=== PATIENT | female | born 1985 | race Caucasian/White ===

== ENCOUNTER 2021-03-08 18:18 | Emergency (ER) | payer OTHER, SELFPAY ==
[2021-03-08 18:33] VITALS: BP 109/61; PULSE 73; RESP 18; TEMP 36.4; O2SAT 100
--- NOTE | 2021-03-08 18:39 | ED.FEMALEGU ---
HPI - Female Genitourinary General Chief complaint: Urogenital-Female Stated complaint: uti Source: patient and RN notes reviewed Limitations: no limitations History of Present Illness HPI Narrative: The patient, previously mostly healthy non-smoker/occasional drinker, presents with urinary symptoms. Patient states she is she has a 2-day history of definite frequency, urgency and end dysuria. No blood/hematuria, back pain, vomiting/diarrhea, vaginal discharge; symptoms are mild worse with micturition -like prior UTI. LMP was recently; Patient has a prior history of E. coli , resistant only to Bactrim 2018. [Pharmacy was sent a prescription for Bactrim before the microbiology record was reviewed], discussed will provide the patient Cipro Related Data Allergies Allergy/AdvReac Type Severity Reaction Status Date / Time No Known Allergies Allergy Verified 03/08/21 18:21 Review of Systems Review of Systems: General/Constitutional: No weight loss,fever Eyes: N0: Redness,discharge Ears/Nose/Throat: No: Epistaxis,ear discharge Respiratory: Denies: Hemoptysis Gastrointestinal: No Vomiting, Bleeding-rectal Skin: No Lumps, eruption Neurologic: No Focal Weakness,Sz Hematologic: Denies: Petechiae/Purpura Psychiatric: No: Suicida ideationl All Other Systems: Reviewed and Negative PMFSH Social History Social History Gender identity (if verbalized by the patient): Female Comments At time of signature, agree with nursing past medical, surgical, social and family history. There is no relevant family history pertinent to the presenting complaint Exam Narrative: General Appearance: Well appearing, Conjunctiva clear Mouth/Throat: Normal appearing, Normal lips, Supple Respiratory: Airway patent, No respiratory distress Abdomen: Soft, Non-tender, Musculoskeletal: Full ROM Skin: Warm, Dry Neurological: A&O x3, , Normal affect Course Vital Signs Vital signs: Vital Signs Temperature 97.6 F 03/08/21 18:33 Pulse Rate 73 03/08/21 18:33 Respiratory Rate 18 03/08/21 18:33 Blood Pressure 109/61 03/08/21 18:33 Pulse Oximetry 100 03/08/21 18:33 Temperature 97.6 F 03/08/21 18:33 Pulse Rate 73 03/08/21 18:33 Respiratory Rate 18 03/08/21 18:33 Blood Pressure 109/61 03/08/21 18:33 Pulse Oximetry 100 03/08/21 18:33 MDM - Female Genitourinary Lab Data Labs: Urine Glucose Negative Reference Range: Negative Urine Bilirubin Negative Reference Range: Negative Urine Ketone Negative Reference Range: Negative Urine Specific [place] 1.010 Reference Range:1.001-1.035 Urine Blood 2+ Reference Range: Negative * * Urine pH 5.5 Reference Range: 5.0-9.0 Urine Protein Negative Reference Range: Negative Urine Urobilinogen 0.2 Reference Range: 0.2-1.0 Urine Nitrate Negative Reference Range: Negative Urine Leukocyte 2+ Reference Range: Negative Urine Color Light/Pale Reference Range: Yellow Urine Characteristics Cloudy Urine Characteristics Cloudy Discharge Plan Discharge Clinica
== END 2021-03-08 18:52 | disposition home or self-care (01) ==
PROVIDERS: Emergency Provider Emergency Medicine; PCP Physician Assistant
DX: N30.00 Acute cystitis without hematuria (principal)
CPT/HCPCS: 81003; 99213; G0463

== ENCOUNTER 2021-05-30 10:23 | Emergency (ER) | payer OTHER, SELFPAY ==
[2021-05-30 10:32] VITALS: BP 117/68; PULSE 71; RESP 18; TEMP 36.8; O2SAT 100
--- NOTE | 2021-05-30 10:37 | ED.FEMALEGU ---
HPI - Female Genitourinary General Chief complaint: Urogenital-Female Stated complaint: Bladder pain Source: patient and RN notes reviewed Limitations: no limitations History of Present Illness HPI Narrative: The patient, previously mostly healthy, presents with a 2-day history of typical urinary frequency, urgency and end stream dysuria-like prior UTIs. In past she was treated with Cipro as prior culture showed Bactrim resistant E. coli. No fever, abdominal pain, low back pain, blood, vaginal discharge [-she declines STI testing], symptoms are mild worse micturition. Related Data Home Medications Medication Instructions Recorded Confirmed etodolac mg 05/30/21 05/30/21 Allergies Allergy/AdvReac Type Severity Reaction Status Date / Time No Known Allergies Allergy Verified 05/30/21 10:42 Review of Systems Review of Systems: General/Constitutional: No weight loss,fever Eyes: N0: Redness,discharge Ears/Nose/Throat: No: Epistaxis,ear discharge Respiratory: Denies: Hemoptysis Gastrointestinal: No Vomiting, Bleeding-rectal Skin: No Lumps, eruption Neurologic: No Focal Weakness,Sz Hematologic: Denies: Petechiae/Purpura Psychiatric: No: Suicida ideationl All Other Systems: Reviewed and Negative [facility] Social History Social History Gender identity (if verbalized by the patient): Female Comments At time of signature, agree with nursing past medical, surgical, social and family history. There is no relevant family history pertinent to the presenting complaint Exam Narrative: General Appearance: Well appearing, No distress EYE: PERRLA, Conjunctiva clear Ears: External ear normal Nose: Normal nose Mouth/Throat: Normal appearing, Normal lips Neck: Supple Respiratory: Airway patent, No respiratory distress Cardiovascular: RRR Abdomen: Soft, Non-tender, No massess, Musculoskeletal: Full ROM Skin: Warm, Dry Neurological: A&O x3, CN II-X intact Psychiatric: Normal mood, Normal affect Course Vital Signs Vital signs: Vital Signs Temperature 98.3 F 05/30/21 10:32 Pulse Rate 71 05/30/21 10:32 Respiratory Rate 18 05/30/21 10:32 Blood Pressure 117/68 05/30/21 10:32 Pulse Oximetry 100 05/30/21 10:32 Temperature 98.3 F 05/30/21 10:32 Pulse Rate 71 05/30/21 10:32 Respiratory Rate 18 05/30/21 10:32 Blood Pressure 117/68 05/30/21 10:32 Pulse Oximetry 100 05/30/21 10:32 MDM - Female Genitourinary Lab Data Labs: Urine Glucose Negative Reference Range: Negative Urine Bilirubin Negative Reference Range: Negative Urine Ketone Negative Reference Range: Negative Urine Specific [place] 1.015 Reference Range:1.001-1.035 Urine Blood 2+ Reference Range: Negative * * Urine pH 7.0 Reference Range: 5.0-9.0 Urine Protein Negative Reference Range: Negative Urine Urobilinogen 0.2 Reference Range: 0.2-1.0 Urine Nitrate Negative Reference Range: Negative Urine Leukocyte 1+ Reference Range: Negative Urine Color Yellow Reference Range: Yellow Urine Characteristics Clear Discharge Plan Discharge Clinica
== END 2021-05-30 10:48 | disposition home or self-care (01) ==
PROVIDERS: Emergency Provider Emergency Medicine; PCP Physician Assistant
DX: N30.90 Cystitis, unspecified without hematuria (principal)
CPT/HCPCS: 81003; 99213; G0463

== ENCOUNTER 2022-03-31 15:16 | Emergency (ER) | payer OTHER, SELFPAY ==
--- NOTE | 2022-03-31 15:17 | ED.URI ---
HPI - URI/Sore Throat General Chief Complaint: Upper Respiratory Infection Stated Complaint: Cough Time Seen by Provider: 03/31/22 15:28 Source: patient, RN notes reviewed and old records reviewed Mode of arrival: ambulatory Limitations: no limitations History of Present Illness HPI Narrative: 36-year-old female presents to the [facility] with complaints of a cough for a couple of weeks. Patient reports that she was evaluated at [facility]. Per medical record was seen 815 and prescribed azithromycin . already taken a azithromycin, Z-Cristian with no relief. States that she tried some Mucinex and Zyrtec for couple of days with minimal relief. No other treatment prior to arrival. denies fevers. Denies chest pain or abdominal pain. No nausea vomiting diarrhea. Denies any other upper respiratory issues. Denies concerns for COVID, has taken multiple at home tests Related Data Allergies Allergy/AdvReac Type Severity Reaction Status Date / Time No Known Allergies Allergy Verified 03/31/22 15:18 Review of Systems Review of Systems: All systems reviewed & are unremarkable except as noted in HPI and below Constitutional: Constitutional: Reports no additional constitutional complaints, Denies chills and Denies fever(s) Eyes: Eyes: Reports no additional eye complaints ENT: Reports system reviewed and no additional complaints, except as documented Cardiovascular: Cardiovascular: Reports no additional cardiovascular complaints Respiratory: Respiratory: Reports as per HPI, Denies chest congestion, Reports cough, Denies dyspnea and Denies wheezing Gastrointestinal: Gastrointestinal: Reports no additional gastrointestinal complaints Musculoskeletal: Musculoskeletal: Reports no additional musculoskeletal complaints Integumentary/Breasts: Skin/Breast: Reports system reviewed and no additional complaints, except as docu Neurologic: Reports system reviewed and no additional complaints, except as documented Psychiatric: Psychiatric: Reports no additional psychiatric complaints Allergic/Immunologic: Allergic/Immunologic: Reports no additional allergic/immunologic complaints [facility] Past Medical History Medical History (Updated 03/31/22 @ 15:47 by Ginger Mccormick APRN) Patient denies medical problems Surgical History Surgical History (Updated 03/31/22 @ 15:47 by Ginger Mccormick APRN) No pertinent past surgical history Social History Social History (Updated 03/31/22 @ 15:47 by Ginger Mccormick APRN) Smoking status: Never smoker Living arrangements: with family Gender identity (if verbalized by the patient): Female Comments At the time of my signature, I reviewed and agree with the nursing past medical, surgical, social, and family history. There is no relevant family history pertinent to the patient complaint. Exam Const: General: healthy appearing, no acute distress and alert Nutritional Appearance: well nourished Orientation/consciousness: patient oriented x3 Limitations: no limitations HENMT: Head: normal to inspection Ears: external ears normal, TM's normal bilaterally and EAC's normal General nose exam: Normal external nose present and Normal nares present Face and sinus: normal facial exam Mouth: Yes Normal oral and palatal mucosa present, Yes lip normal and Yes moist mucous membranes Throat: uvula midline, posterior oropharynx abnormal cobblestoning; no edema, no erythema, no exudates and no lacerations and postnasal drainage Eyes: General: appearance normal, both eyes and all related structures Conjunctivae: conjunctivae normal Pupils: Equal, round and reactive pupils present Neck: Neck: normal visual inspection, no lymphadenopathy and no meningeal signs Chest: Chest palpation & inspection: normal inspection of the chest Resp: Effort & Inspection: normal respiratory effort and no use of accessory muscles Auscultation: clear to auscultation bilaterally, no crackles, no rales, no rhonchi and no whe
[2022-03-31 15:26] VITALS: BP 115/66; PULSE 69; RESP 18; TEMP 36.8; O2SAT 100
== END 2022-03-31 15:42 | disposition home or self-care (01) ==
PROVIDERS: Emergency Provider Nurse Practitioner; PCP Physician Assistant
DX: J40 Bronchitis, not specified as acute or chronic (principal); R09.82 Postnasal drip; Z86.16 Personal history of COVID-19
CPT/HCPCS: 99213; G0463

== ENCOUNTER 2022-06-13 15:10 | Emergency (ER) | payer OTHER, SELFPAY ==
--- NOTE | ~2022-06-13 | XR_ITS ---
XR chest 2V DATE: 06/13/2022 15:31 INDICATION: Cough for over a week. Chest discomfort. TECHNIQUE: PA and lateral views COMPARISON: None FINDINGS: Normal heart size. No hilar or mediastinal enlargement. No pulmonary infiltrate or consolid ation, pleural effusion or pulmonary vascular congestion or pneumothorax. Mild thoracic scoliosis. IMPRESSION: No active cardiopulmonary disease Reviewed, dictated and finalized at location [facility]
[2022-06-13 15:21] VITALS: BP 113/72; PULSE 74; RESP 18; TEMP 36.4; O2SAT 100
--- NOTE | 2022-06-13 15:25 | ED.URI ---
HPI - URI/Sore Throat General Chief Complaint: Upper Respiratory Infection Stated Complaint: cough Time Seen by Provider: 06/13/22 15:20 Source: patient Mode of arrival: ambulatory Limitations: no limitations History of Present Illness HPI Narrative: Markel is a 36-year-old female patient presenting to clinic today with complaints of a nonproductive cough x2 weeks. She reports she has taken Mucinex, antihistamines, and Flonase without relief. She feels as though her chest is rattling. She denies any fever or chills. States that her kids were sick with viral infection. Denies any nasal drainage, sore throat, or sinus pressure. Denies any new medications other than what was listed above. MD elicited complaint: sore throat and nasal congestion Related Data Home Medications Medication Instructions Recorded Confirmed loratadine 10 mg tablet (Claritin) 10 mg PO DAILY 06/13/22 06/13/22 Allergies Allergy/AdvReac Type Severity Reaction Status Date / Time No Known Allergies Allergy Verified 06/13/22 15:26 Review of Systems Review of Systems: Pertinent positives per HPI. Patient denies any fever, chills, rash, headache, visual changes, dizziness, cough, shortness of breath, chest pain, palpitations, nausea, vomiting, diarrhea, constipation, abdominal pain, or any urinary issues. PMFSH Past Medical History Medical History Patient denies medical problems Surgical History Surgical History No pertinent past surgical history Social History Social History Smoking status: Never smoker Gender identity (if verbalized by the patient): Female Comments At the time of my signature, I reviewed and agree with the nursing past medical, surgical, social, and family history. There is no relevant family history pertinent to the patient complaint. Exam Narrative: General: Well-developed, well nourished, in no apparent distress Head: Normocephalic, atraumatic Eyes: Pupils equally round and reactive to light bilaterally, EOM intact, sclera and conjunctive clear, no discharge, lids normal Ears: TMs intact and clear, ear canals clear, no drainage, grossly hearing normal. Nose: Nares patent, no discharge, no inflammation, no sinus tenderness. Mouth: Oral pharynx without lesions or masses, good dentition, MMM. Neck: Supple, trachea midline, no enlargement of anterior or posterior cervical nodes, no thyroid masses or goiter palpable. Cardio: Regular rate and rhythm, s1 and s2 normal, no murmur appreciated. Resp: Clear to auscultation bilaterally, no rhonchi, rales, wheezing or rubs Course Course Emergency Course: Portions of this record may have been created with voice recognition software. Level of Care: Express Care Visit Vital Signs Vital signs: Vital Signs Temperature 36.4 C L 06/13/22 15:21 Pulse Rate 74 06/13/22 15:21 Respiratory Rate 18 06/13/22 15:21 Blood Pressure 113/72 06/13/22 15:21 Pulse Oximetry 100 06/13/22 15:21 Oxygen Delivery Room Air 06/13/22 15:21 Temperature 36.4 C L 06/13/22 15:21 Pulse Rate 74 06/13/22 15:21 Respiratory Rate 18 06/13/22 15:21 Blood Pressure 113/72 06/13/22 15:21 Pulse Oximetry 100 06/13/22 15:21 Oxygen Delivery Room Air 06/13/22 15:21 Vital signs reviewed MDM - URI/Sore Throat MDM Narrative Medical decision making narrative: At the time of visit patient is resting comfortably on exam table. Chest x-ray was performed and was negative for any sign of pneumonia or abnormality in the lung. I suspect patient has somewhat of a reactive airway/acute cough. I will place patient on some prednisone and albuterol inhaler. Supportive measures were discussed with the patient she voiced understanding of discharge instructions and agrees to treatment plan. Kay
== END 2022-06-13 16:00 | disposition home or self-care (01) ==
PROVIDERS: Emergency Provider Nurse Practitioner Family; PCP Physician Assistant
DX: R05.1 Acute cough (principal)
CPT/HCPCS: 71046; 99213; G0463

== ENCOUNTER 2023-01-10 17:36 | Emergency (ER) | payer OTHER, SELFPAY ==
--- NOTE | 2023-01-10 17:45 | ED.FEMALEGU ---
HPI - Female Genitourinary General Chief complaint: Urogenital-Female Stated complaint: uti symptoms Source: patient and RN notes reviewed Mode of arrival: ambulatory Limitations: no limitations History of Present Illness HPI Narrative: 37 y/o female presented for c/o burning at the end of urination, urinary frequency, and low mid back pain since yesterday. Denies injury/strain to back. Denies hematuria, abdominal pain, n/v/d/f/c. Not taking anything for symptoms. Reports history of uti's and this is how they start. Related Data Home Medications Medication Instructions Recorded Confirmed loratadine 10 mg tablet (Claritin) 10 mg PO DAILY 06/13/22 06/13/22 Allergies Allergy/AdvReac Type Severity Reaction Status Date / Time No Known Allergies Allergy Verified 06/13/22 15:26 Review of Systems Review of Systems: CONSTITUTIONAL: Denies body aches, fever, chills, or sweats. CARDIOVASCULAR: Denies chest pain, palpitations, or edema. RESPIRATORY: Denies cough or dyspnea. GASTROINTESTINAL: Denies abdominal pain, nausea, vomiting, or diarrhea. GENITOURINARY: Reports dysuria, frequency,denies hematuria, flank pain SKIN: Denies rash, itching, or wounds. MUSCULOSKELETAL: Denies back pain or myalgia. [facility] Past Medical History Medical History (Updated 01/10/23 @ 18:02 by Nesha Chao APRN) Patient denies medical problems Surgical History Surgical History (Updated 01/10/23 @ 18:02 by Nesha Chao APRN) History of tonsillectomy No pertinent past surgical history Social History Social History Smoking status: Never smoker Living arrangements: with family Gender identity (if verbalized by the patient): Female Comments At time of signature, I have reviewed and agree with nursing past medical, surgical, social and family history unless otherwise noted. Please see nursing chart for further information. There is no relevant family history pertinent to the presenting complaint Exam Narrative: GENERAL: Well-appearing ENT: Mucous membranes pink and moist. NECK: Normal AROM. Supple. CHEST: No respiratory distress. Clear to auscultation. HEART: Regular rate and rhythm. ABDOMEN: Soft, nontender, nondistended, normal active bowel sounds. No CVA tenderness SKIN: Warm, dry, no rash. NEURO: No focal deficits. Alert and oriented x3. Gait steady. PSYCH: Normal affect. Course Course Emergency Course: Patient is aware of diagnosis, understands and agrees to treatment plan. Anticipatory guidance given. Patient agrees to follow-up as directed and is aware of reasons to seek care at the emergency department. Portions of this record may have been created with voice recognition software Level of Care: Express Care Visit Vital Signs Vital signs: Reviewed MDM - Female Genitourinary MDM Narrative Medical decision making narrative: Result of urine reviewed with pt, will send for culture. Will send abx, since pt states this is how her UTI symptoms start. Discussed physical exam findings. Patient adamantly denies back strain/injury. Advised supportive measures and signs/symptoms to go to the ER. Pt is appropriate for outpt treatment and f/u. Differential Diagnosis Differential diagnosis: Likely urinary tract infection, cystitis and other Discharge Plan Discharge Clinical Impression: Dysuria Patient Disposition: Home, Self-Care Condition: Stable Instructions: Antibiotic Form, Urinary Tract Infection in Women (ED) Additional Instructions: Take the antibiotic as prescribed until gone. The urine will be sent of for a culture to identify what type of bacteria is causing your infection. If the culture shows that the antibiotic will not get rid of your infection, you will be notified and a new antibiotic will be called in for you. Increase water intake you will need to follow up with your PCP Go to the ER for worsening s
[2023-01-10 17:47] VITALS: BP 122/73; PULSE 65; RESP 16; TEMP 36.4; O2SAT 100
== END 2023-01-10 18:05 | disposition home or self-care (01) ==
PROVIDERS: Emergency Provider Nurse Practitioner Family; PCP Physician Assistant
DX: R30.0 Dysuria (principal)
CPT/HCPCS: 81003; 87086; 99213; G0463